=== PATIENT | female | born 1975 | race Caucasian/White ===

== ENCOUNTER 2022-02-24 23:28 | Emergency (ER) | payer OTHER ==
[2022-02-25 00:54] LABS: Anion Gap 20 mmol/L (10-20); BUN (Urea Nitrogen) 10 mg/dL (7.0-18.7); Calc. Creatinine Clearance 0 mL/min (70-130); Carbon Dioxide 25 mmol/L (22-29); Chloride 100 mmol/L (98-107); Estimated GFR 103; Potassium 3.8 mmol/L (3.5-5.1); Sodium 141 mmol/L (136-145)
[2022-02-25 00:55] LABS: Albumin 4.1 g/dL (3.5-5.0); Bilirubin, Total 0.3 mg/dL (0.2-1.2); Calcium 9.7 mg/dL (7.8-10.44); Globulin 3.7 g/dL (2.4-3.5); Glucose 96 mg/dL (70-105); Protein, Total 7.8 g/dL (6.0-8.3)
[2022-02-25 00:56] LABS: ALT (SGPT) 25 U/L (8-55); AST (SGOT) 26 U/L (5-34); Alkaline Phosphatase 77 U/L (40-110)
[2022-02-25] MEDS ORDERED: Ketorolac Tromethamine 60 MG/2 ML VIAL ONE (01:18)
[2022-02-25] MEDS ORDERED: Cyclobenzaprine 10 MG TAB ONE (01:18)
== END 2022-02-25 02:21 | disposition home or self-care (01) ==
LOC: NAV ERS 23:28
DX: S16.1XXA Strain of muscle, fascia and tendon at neck level, initial encounter (principal); I10 Essential (primary) hypertension; E03.9 Hypothyroidism, unspecified; Z79.899 Other long term (current) drug therapy; V49.50XA Passenger injured in collision with unspecified motor vehicles in traffic accident, initial encounter
CPT/HCPCS: 70450; 72125; 72128; 80053; 93005; 96372; G0390; J1885